=== PATIENT | female | born 1960 | race Asian ===

== ENCOUNTER 2016-05-19 06:38 | Emergency (ER) | payer OTHER ==
[~2016-05-19] VITALS: Ht 152.4 cm; Wt 61.8 kg
[2016-05-19 06:40] VITALS: BP 123/83; TEMP 97.7
[2016-05-19] MEDS ORDERED: NATURE'S BLE1000 MCG PO (06:45)
[2016-05-19] MEDS ORDERED: VITAMIN D1000 IU PO (06:45)
[2016-05-19] MEDS ORDERED: OSTEO-BI-FLEX 21 TAB PO (06:45)
[2016-05-19] MEDS ORDERED: NAPROSYN500 MG PO (08:09)
[2016-05-19] MEDS ORDERED: FLEXERIL 1010 MG/TAB PO (08:09)
[2016-05-19 08:30] VITALS: PULSE 62
== END 2016-05-19 08:31 | disposition home or self-care (01) ==
LOC: COL.ER 06:38
DX: S80.02XA Contusion of left knee, initial encounter (principal); S80.01XA Contusion of right knee, initial encounter; S16.1XXA Strain of muscle, fascia and tendon at neck level, initial encounter; V47.5XXA Car driver injured in collision with fixed or stationary object in traffic accident, initial encounter

== ENCOUNTER → 2016-07-30 | Outpatient (CLI) | payer OTHER ==
[~2016-07-30] MED LIST: FLEXERIL 1010 MG/TAB PO; NAPROSYN500 MG PO; NATURE'S BLE1000 MCG PO; OSTEO-BI-FLEX 21 TAB PO; VITAMIN D1000 IU PO
== END ==
LOC: MC.RAD 08:25
DX: Z12.31 Encounter for screening mammogram for malignant neoplasm of breast (principal)

== ENCOUNTER → 2019-04-03 | Outpatient (CLI) | payer BC, OTHER | LOC: MC.RAD 13:45 | DX: Z12.31 Encounter for screening mammogram for malignant neoplasm of breast (principal) ==

== ENCOUNTER 2020-05-11 13:45 | Outpatient (RCR) | payer BC, OTHER | END 2020-05-16 | disposition home or self-care (01) | LOC: WSC | DX: M25.552 Pain in left hip (principal); M79.652 Pain in left thigh; M79.602 Pain in left arm ==

== ENCOUNTER 2020-07-15 07:29 | Day surgery (SDC) | payer BC, OTHER ==
[~2020-07-15] VITALS: Ht 152.4 cm; Wt 55.9 kg
[2020-07-15] MEDS ORDERED: NEURONTIN100 MG/CAP PO (07:57)
[2020-07-15] MEDS ORDERED: VITAMIND3 5000 PO (07:57)
[2020-07-15] MEDS ORDERED: CLARITIN 1010 MG/TAB PO (07:58)
[2020-07-15 08:11] VITALS: BP 110/86; PULSE 69; TEMP 97.6
[2020-07-15 09:05] VITALS: BP 108/94; PULSE 63; TEMP 97.2
--- NOTE | 2020-07-15 09:05 | NUR ---
Patient arrives back to [facility] very drowsy. Patient transfered from cart to chair with assist x2 and without any complications. Patient monitor applied, vitals stable. Patient resting comfortably in chair.
[2020-07-15 09:15] VITALS: BP 114/83; PULSE 68
--- NOTE | 2020-07-15 09:15 | NUR ---
Patient more awake at this time and given coffee and muffin.
--- NOTE | 2020-07-15 09:25 | NUR ---
Patient alert and tolerated coffee and muffin without any nausea. Vitals stable.
[2020-07-15 09:30] VITALS: BP 128/72; PULSE 58
--- NOTE | 2020-07-15 09:40 | NUR ---
Dr Easley into see patient to go over procedure results at this time.
--- NOTE | 2020-07-15 09:45 | NUR ---
Dismissal instructions gone over with patient. Patient voices understanding and all questions answered.
--- NOTE | 2020-07-15 10:00 | NUR ---
Patient discharged to private vehicle at patient enterance via wheelchair. Patient leaves thanking staff for services.
== END 2020-07-15 10:00 | disposition home or self-care (01) ==
LOC: SDCO
DX: Z12.11 Encounter for screening for malignant neoplasm of colon (principal); K92.1 Melena; K64.0 First degree hemorrhoids; Z86.010 Personal history of colon polyps; Z20.822 Contact with and (suspected) exposure to COVID-19; Z90.710 Acquired absence of both cervix and uterus; Z88.8 Allergy status to other drugs, medicaments and biological substances
CPT/HCPCS: J2704; J7120